=== PATIENT | female | born 1980 | race Caucasian/White ===

== ENCOUNTER 2017-10-11 18:24 | Emergency (ER) | payer MEDICAID, SELFPAY | END 2017-10-11 19:25 | disposition home or self-care (01) | LOC: SCSER 18:24 | DX: L02.01 Cutaneous abscess of face (principal); I10 Essential (primary) hypertension; F17.210 Nicotine dependence, cigarettes, uncomplicated; Z71.6 Tobacco abuse counseling | CPT/HCPCS: 99406 ==

== ENCOUNTER 2017-10-13 18:48 | Emergency (ER) | payer SELFPAY ==
[~2017-10-13 18:48] MED LIST: Iopamidol 370 76% 100 ML VIAL ONE
[2017-10-13] MEDS ORDERED: Ketorolac Tromethamine 30 MG/ML VIAL ONE (19:11)
[2017-10-13] MEDS ORDERED: Mag-Al Plus 1200 MG/1200 MG/120 MG/30 ML UDCUP ONE (19:33)
[2017-10-13] MEDS ORDERED: diphenhydrAMINE 12.5 MG/5 ML UDCUP ONE (19:33)
[2017-10-13] MEDS ORDERED: Lidocaine Viscous Sol 2% 15 ml UD Cup ONE (19:33)
[2017-10-13 19:36] LABS: Band 4 % (5-11); Eosinophils 2 % (0-10); Hemoglobin 14.3 g/dL (12.0-16.0); Lymphocytes 16 % (21-51); MDiff Complete? YES; Mean Corpuscular HGB CONC 35.4 g/dL (32.0-36.0); Mean Corpuscular Hemoglobin 32.1 pg (27.0-31.0); Mean Corpuscular Volume 90.6 fL (78.0-98.0); Mean Platelet Volume 6.8 fL (7.4-10.4); Monocytes 2 % (0-10); Neutrophil 74 % (42-75); PLT Morphology Comment Appears Adequate; Platelet Count 314 thou/uL (130-400); RBC Distribution Width 11.1 % (11.5-14.5); Reactive Lymphocytes 2 % (0-10); Red Blood Cell (RBC) Count 4.44 mill/uL (4.20-5.40); White Blood Cell (WBC) Count 10.9 thou/uL (4.8-10.8)
[2017-10-13 19:39] LABS: Anion Gap 15 mmol/L (10-20); BUN (Urea Nitrogen) 8 mg/dL (7.0-18.7); Calc. Creatinine Clearance 0 mL/min (70-130); Calcium 10.3 mg/dL (7.8-10.44); Carbon Dioxide 23 mmol/L (22-29); Chloride 103 mmol/L (98-107); Estimated GFR-MDRD 79; Glucose 81 mg/dL (70-105); Potassium 3.7 mmol/L (3.5-5.1); Sodium 137 mmol/L (136-145)
--- NOTE | 2017-10-13 20:10 | CT ---
CT FACE WITH IV CONTRAST: INDICATIONS: Facial swelling. Concern for infection. COMPARISON: None. FINDINGS: The visualized intracranial contents appear within normal limits. The orbits are intact. The globes are intact. The visualized filterer space appears clear. The parapharyngeal space is clear. The parotid and submandibular glands are normal appearing. There are a few shotty appearing lymph nodes seen within the upper neck, within the level 2A position, as well as within a 1B position, bilateral ly. The visualized aspects of the aerodigestive tract and thyroid gland appear within normal limits. The retropharyngeal space is normal appearing. The visualized adenoid and palatine tonsils appear within normal limits. The visualized paranasal sinuses are clear. No acute osseous abnormality is e vident. The visualized aspects of the cervical spine appear within normal limits. IMPRESSION: No acute abnormality. POS: BH
[2017-10-13] MEDS ORDERED: Dexamethasone 10 MG/ML VIAL ONE (20:16)
== END 2017-10-13 21:17 | disposition home or self-care (01) ==
LOC: SCSER 18:48
DX: K13.0 Diseases of lips (principal); I10 Essential (primary) hypertension; F17.210 Nicotine dependence, cigarettes, uncomplicated; Z79.891 Long term (current) use of opiate analgesic
CPT/HCPCS: 70487; 80048; 85025; 96361; 96374; 96375; J1100; J1885

== ENCOUNTER 2020-08-10 17:39 | Emergency (ER) | payer SELFPAY ==
[2020-08-10] MEDS ORDERED: Ondansetron PF 4 MG/2 ML Vial ONE (18:12)
[2020-08-10] MEDS ORDERED: Morphine 4 MG/ML VIAL ONE (18:12)
[2020-08-10 18:32] LABS: #Basophils 0.1 thou/uL (0.0-0.2); #Eosinphils 0.1 thou/uL (0.0-0.7); #Lymphocytes 2.3 thou/uL (1.20-3.40); #Monocytes 0.4 thou/uL (0.11-0.59); #Neutrophils 5.2 thou/uL (1.40-6.50); %Basophils 0.6 % (0.0-1.0); %Eosinophils 1.3 % (0.0-10.0); %Lymphocytes 28.6 % (21.0-51.0); %Monocytes 5.2 % (0.0-10.0); %Neutrophils 64.3 % (42.0-75.0); Hemoglobin 14.3 g/dL (12.0-16.0); Mean Corpuscular HGB CONC 35.9 g/dL (32.0-36.0); Mean Corpuscular Hemoglobin 35.1 pg (27.0-31.0); Mean Platelet Volume 6.6 fL (7.4-10.4); Platelet Count 341 thou/uL (130-400); RBC Distribution Width 12.4 % (11.5-14.5); Red Blood Cell (RBC) Count 4.06 mill/uL (4.20-5.40); White Blood Cell (WBC) Count 8.1 thou/uL (4.8-10.8)
[2020-08-10 18:50] LABS: Bacteria/HPF None Seen HPF (None Seen); Bilirubin Negative (Negative); Blood, Urine 1+ (Negative); Clarity Clear (Clear); Glucose, Urine (Dipstick) Normal (Negative); Ketone, Urine Negative (Negative); Leukocyte Negative Leu/uL (Negative); Nitrite Negative (Negative); Protein, Urine (Dipstick) Negative (Neg-Trace); RBC/HPF 0-3 HPF (0-3); Specific Gravity, Urine 1.012 (1.002-1.036); Squamous Epithelial 0-3 HPF (0-3); Urobilinogen Normal mg/dL (Less than 2); WBC/HPF 0-3 HPF (0-3)
[2020-08-10 18:52] LABS: ALT (SGPT) 11 U/L (8-55); AST (SGOT) 14 U/L (5-34); Albumin 4.3 g/dL (3.5-5.0); Alkaline Phosphatase 47 U/L (40-110); Anion Gap 14 mmol/L (10-20); BHCG - Serum Negative (NEGATIVE); BUN (Urea Nitrogen) 7 mg/dL (7.0-18.7); Bilirubin, Total 1.1 mg/dL (0.2-1.2); Calc. Creatinine Clearance 0 mL/min (70-130); Calcium 9.6 mg/dL (7.8-10.44); Carbon Dioxide 21 mmol/L (22-29); Chloride 104 mmol/L (98-107); Globulin 3.1 g/dL (2.4-3.5); Glucose 94 mg/dL (70-105); Lipase 9 U/L (8-78); Potassium 3.7 mmol/L (3.5-5.1); Pregs Control Background? CLEAR/WHITE (CLR/WHITE); Pregs Control Bar Appear? YES (CONTROL BAR); Protein, Total 7.4 g/dL (6.0-8.3); Sodium 135 mmol/L (136-145)
[2020-08-10] MEDS ORDERED: Pantoprazole 40 MG VIAL ONE (19:27)
== END 2020-08-10 19:45 | disposition home or self-care (01) ==
LOC: ERS 17:39
DX: R11.2 Nausea with vomiting, unspecified (principal); R19.7 Diarrhea, unspecified; I10 Essential (primary) hypertension; F17.210 Nicotine dependence, cigarettes, uncomplicated
CPT/HCPCS: 36415; 80053; 81003; 81015; 83690; 84703; 85025; 93005; 96374; 96375; C9113; J2270; J2405

== ENCOUNTER 2021-11-19 14:00 | Emergency (ER) | payer MEDICAID, SELFPAY ==
[2021-11-19 14:47] LABS: #Eosinphils 0.2 thou/uL (0.0-0.7); #Monocytes 0.4 thou/uL (0.11-0.59); #Neutrophils 4.7 thou/uL (1.40-6.50); %Basophils 0.6 % (0.0-1.0); %Eosinophils 2.2 % (0.0-10.0); %Lymphocytes 26.8 % (21.0-51.0); %Monocytes 5.6 % (0.0-10.0); %Neutrophils 64.8 % (42.0-75.0); Hemoglobin 11.1 g/dL (12.0-16.0); Mean Corpuscular Hemoglobin 34.4 pg (27.0-31.0); Mean Platelet Volume 6.8 fL (7.4-10.4); Platelet Count 326 thou/uL (130-400); RBC Distribution Width 11.7 % (11.5-14.5); Red Blood Cell (RBC) Count 3.24 mill/uL (4.20-5.40); White Blood Cell (WBC) Count 7.3 thou/uL (4.8-10.8)
[2021-11-19 14:52] LABS: BHCG - Serum POSITIVE (NEGATIVE); Pregs Control Background? CLEAR/WHITE (CLR/WHITE); Pregs Control Bar Appear? YES (CONTROL BAR)
[2021-11-19 15:01] LABS: ALT (SGPT) 28 U/L (8-55); AST (SGOT) 62 U/L (5-34); Albumin 3.8 g/dL (3.5-5.0); Alkaline Phosphatase 40 U/L (40-110); Anion Gap 17 mmol/L (10-20); BUN (Urea Nitrogen) 8 mg/dL (7.0-18.7); Bilirubin, Total 0.7 mg/dL (0.2-1.2); Calc. Creatinine Clearance 0 mL/min (70-130); Calcium 9.7 mg/dL (7.8-10.44); Carbon Dioxide 17 mmol/L (22-29); Chloride 105 mmol/L (98-107); Estimated GFR 116; Globulin 2.8 g/dL (2.4-3.5); Glucose 86 mg/dL (70-105); Protein, Total 6.6 g/dL (6.0-8.3); Sodium 136 mmol/L (136-145)
[2021-11-19 15:12] LABS: Potassium 2.7 mmol/L (3.5-5.1)
[2021-11-19] MEDS ORDERED: Potassium Chloride 20 MEQ TAB ONE (15:40)
== END 2021-11-19 18:53 | disposition short-term general hospital (02) ==
LOC: ERS 14:00
DX: O02.1 Missed abortion (principal); O10.912 Unspecified pre-existing hypertension complicating pregnancy, second trimester; O99.332 Smoking (tobacco) complicating pregnancy, second trimester; F17.210 Nicotine dependence, cigarettes, uncomplicated; Z3A.16 16 weeks gestation of pregnancy
CPT/HCPCS: 36415; 76815; 80053; 84702; 84703; 85025; 86900; 86901

== ENCOUNTER 2021-12-27 17:28 | Emergency (ER) | payer MEDICAID, OTHER ==
[2021-12-27] MEDS ORDERED: Ketorolac Tromethamine 30 MG/ML VIAL ONE ×2 (19:34→20:10)
== END 2021-12-27 19:53 | disposition home or self-care (01) ==
LOC: ERS 17:28
DX: L03.115 Cellulitis of right lower limb (principal)
CPT/HCPCS: 96372; J1885

== ENCOUNTER 2022-03-29 13:49 | Emergency (ER) | payer OTHER ==
[2022-03-29] MEDS ORDERED: Ketorolac Tromethamine 30 MG/ML VIAL ONE (15:32)
[2022-03-29] MEDS ORDERED: traMADol HCl 50 MG TAB ONE (15:33)
[2022-03-29] MEDS ORDERED: predniSONE 20 MG TAB ONE (15:34)
[2022-03-29] MEDS ORDERED: Ondansetron ODT 4 MG TAB ONE (15:57)
== END 2022-03-29 15:58 | disposition home or self-care (01) ==
LOC: ERS 13:49
DX: M79.641 Pain in right hand (principal)
CPT/HCPCS: 96372; J1885; J7512; Q0162